=== PATIENT | male | born 1960 | race Caucasian/White ===

== ENCOUNTER → 2017-05-11 | Outpatient (CLI) | payer OTHER ==
[~2017-05-11] MED LIST: AMITRIPTYLINE H25 MG PO; ATORVASTATIN CA10 MG PO; BP MED; CATAFLAM50 MG PO; CLARITIN10 M2 PO; EXCEDRIN MIGRAI1 TA2 PO; FLEXERIL10 MG PO; HYDROCHLOROTHIA25 MG PO; LORTAB 7.51 TAB PO; MIGRAINE MEDICATION PO; MUCINEX DM ER1 EACH PO; MULTIPLE VITAMI1 T11 PO; OMEPRAZOLE20 M1 PO; TRAMADOL HCL50 M2 PO
--- NOTE | ~2017-05-11 | PFT ---
[id number] [facility] [address]. [place], [place] [address] [id number] O MR#: [id number] NAME: GUANAKITO VICENTE ROOM: SEX: Rebecca STUDY DATE/TIME: : 1960 AGE: 56 STUDY DESCRIPTION: Attending Physician: Navya Ochoa M.D. Referring Physician: Navya Ochoa M.D. Primary Care Physician: Navya Ochoa M.D. PULMONARY DIAGNOSTIC REPORT EXAM Pulmonary function tests. FINDINGS Spirometry reveals a mild obstructive defect. There is no significant response to bronchodilators. Flow volume loops consistent with an obstructive defect. Lung volumes reveal air trapping. Diffusion capacity is moderately reduced. Changes are consistent with emphysema. Dictated by... Cole Ann TD: 05/17/2017 13:47 JOB #: [id number] CC: Navya Ochoa M.D. PULMONARY DIAGNOSTIC REPORT Page 1 of 1
== END | disposition home or self-care (01) ==
LOC: CRC 14:00
DX: R05 Cough (principal); F17.200 Nicotine dependence, unspecified, uncomplicated
CPT/HCPCS: 94060; 94726; 94729